=== PATIENT | male | born 1990 | race Hispanic/Latino ===

== ENCOUNTER 2018-07-07 08:21 | Outpatient (CLI) | payer BC ==
[2018-07-07 10:46] LABS: Alanine Aminotransferase 100 units/L (7-56); Albumin 4.9 g/dL (3.9-5); BUN/Creatinine Ratio 11; Blood Urea Nitrogen 9 mg/dL (9-20); Calcium 9.4 mg/dL (8.4-10.2); Chol/HDL Ratio 3.85 %; HDL Cholesterol 49 mg/dL (40-59); Hemolysis Index 4; LDL Cholesterol,Direct 139 mg/dL (50-130)
== END 2018-07-07 08:22 | disposition home or self-care (01) ==
LOC: LAB 08:21
PROVIDERS: ATTEND Internal Medicine
DX: E78.5 Hyperlipidemia, unspecified (principal); E66.09 Other obesity due to excess calories; R73.03 Prediabetes; R74.0 Nonspecific elevation of levels of transaminase and lactic acid dehydrogenase [LDH]
CPT/HCPCS: 36415; 80053; 80061; 83036

== ENCOUNTER 2018-10-05 09:36 | Outpatient (CLI) | payer BC ==
[2018-10-05 11:07] LABS: Alanine Aminotransferase 97 units/L (7-56); Albumin 4.9 g/dL (3.9-5); BUN/Creatinine Ratio 11; Blood Urea Nitrogen 9 mg/dL (9-20); Calcium 9.5 mg/dL (8.4-10.2); Hemolysis Index 4; LDL Cholesterol,Direct 127 mg/dL (50-130)
[2018-10-05 11:21] LABS: Chol/HDL Ratio 3.62 %; HDL Cholesterol 50 mg/dL (40-59)
[2018-10-05 11:47] LABS: Hepatitis B Surface Antigen Non-Reactive (Negative); Hepatitis C Virus Antibody Non-Reactive (NonReactive)
== END 2018-10-05 09:37 | disposition home or self-care (01) ==
LOC: LAB 09:36
PROVIDERS: ATTEND Internal Medicine
DX: E78.5 Hyperlipidemia, unspecified (principal); R74.0 Nonspecific elevation of levels of transaminase and lactic acid dehydrogenase [LDH]; R73.03 Prediabetes
CPT/HCPCS: 36415; 80053; 80061; 80074; 83036

== ENCOUNTER 2019-03-08 09:56 | Outpatient (CLI) | payer BC ==
[2019-03-08 12:56] LABS: Basophils % (Auto) 0.4 % (0.0-1.8); Eosinophils # (Auto) 0.2 K/mm3 (0.0-0.4); Eosinophils % (Auto) 2.8 % (0.0-4.3); Hemoglobin 16.1 gm/dl (11.8-15.2); Lymphocytes # (Auto) 1.9 K/mm3 (1.2-5.4); Lymphocytes % (Auto) 35.1 % (13.4-35.0); Mean Corpuscular HGB Conc 33 % (32-34); Mean Corpuscular Volume 88 fl (84-94); Monocytes # (Auto) 0.4 K/mm3 (0.0-0.8); Monocytes % (Auto) 7.4 % (0.0-7.3); Platelet Count 245 K/mm3 (140-440); Red Blood Count 5.49 M/mm3 (3.65-5.03); Red Cell Distribution Width 13.1 % (13.2-15.2)
[2019-03-08 13:09] LABS: Alanine Aminotransferase 124 units/L (7-56); BUN/Creatinine Ratio 13; Blood Urea Nitrogen 10 mg/dL (9-20); Calcium 9.6 mg/dL (8.4-10.2); Chol/HDL Ratio 4.07 %; HDL Cholesterol 53 mg/dL (40-59); Hemolysis Index 6; LDL Cholesterol,Direct 151 mg/dL (50-130)
[2019-03-11 08:44] LABS: Vitamin D, 25-OH, D2 <4 ng/mL
== END 2019-03-08 09:57 | disposition home or self-care (01) ==
LOC: LAB 09:56
PROVIDERS: ATTEND Internal Medicine
DX: Z00.00 Encounter for general adult medical examination without abnormal findings (principal); Z13.29 Encounter for screening for other suspected endocrine disorder; Z13.21 Encounter for screening for nutritional disorder; R73.03 Prediabetes; E78.5 Hyperlipidemia, unspecified
CPT/HCPCS: 36415; 80053; 80061; 82306; 82607; 83036; 84443; 85025

== ENCOUNTER 2019-03-26 13:46 | Outpatient (CLI) | payer BC ==
--- NOTE | 2019-03-26 17:51 | Ultrasound Report ---
LIMITED RUQ ABDOMINAL ULTRASOUND INDICATION: NONSPECIFIC ELEVATION OF TRANSAMINASE AND LACTIC ACID DEHYDROGENASE. COMPARISON: No relevant prior imaging study available. FINDINGS: Pancreas: Visualized portions show no significant abnormality. Abdominal Aorta: No significant abnormality. IVC: No significant abnormality. Liver: The liver measures 16.7 cm in length. Diffusely increased hepatic echogenicity which typically indicates hepatic steatosis.. Normal hepatopedal blood flow in the main portal vein. Gallbladder: No significant abnormality. Bile ducts: No significant abnormality. Common bile duct measures 4 mm. Right kidney: No significant abnormality visualized.. Free fluid: None. Additional Findings: None. IMPRESSION: 1. Sonographic findings suggesting hepatic steatosis. Signer Name: Kojo Dodson MD Signed: 03/26/2019 5:47 PM Workstation Name: [id number]
== END 2019-03-26 13:47 | disposition home or self-care (01) ==
LOC: US 13:46
PROVIDERS: ATTEND Internal Medicine
DX: K76.0 Fatty (change of) liver, not elsewhere classified (principal); R74.0 Nonspecific elevation of levels of transaminase and lactic acid dehydrogenase [LDH]
CPT/HCPCS: 76705

== ENCOUNTER 2021-01-24 11:29 | Outpatient (CLI) | payer BC ==
[2021-01-24 12:17] LABS: Basophils % (Auto) 0.3 % (0.0-1.8); Eosinophils # (Auto) 0.1 K/mm3 (0.0-0.4); Eosinophils % (Auto) 1.3 % (0.0-4.3); Hematocrit 44.6 % (35.5-45.6); Hemoglobin 14.7 gm/dl (11.8-15.2); Lymphocytes # (Auto) 1.8 K/mm3 (1.2-5.4); Mean Corpuscular HGB Conc 33 % (32-34); Mean Corpuscular Volume 87 fl (84-94); Monocytes # (Auto) 0.4 K/mm3 (0.0-0.8); Monocytes % (Auto) 6.9 % (0.0-7.3); Platelet Count 248 K/mm3 (140-440); Red Cell Distribution Width 13.2 % (13.2-15.2)
[2021-01-24 12:35] LABS: Alanine Aminotransferase 64 units/L (7-56); Albumin 4.9 g/dL (3.9-5); BUN/Creatinine Ratio 15; Blood Urea Nitrogen 12 mg/dL (9-20); Calcium 9.2 mg/dL (8.4-10.2); Chol/HDL Ratio 4.17 %; HDL Cholesterol 47 mg/dL (40-59); Hemolysis Index 4; LDL Cholesterol,Direct 134 mg/dL (50-130)
== END 2021-01-24 11:30 | disposition home or self-care (01) ==
LOC: LAB 11:29
PROVIDERS: ATTEND Internal Medicine
DX: Z00.00 Encounter for general adult medical examination without abnormal findings (principal); E78.5 Hyperlipidemia, unspecified; R53.83 Other fatigue; R73.09 Other abnormal glucose; E55.9 Vitamin D deficiency, unspecified
CPT/HCPCS: 36415; 80053; 80061; 82306; 83036; 84443; 85025

== ENCOUNTER 2021-10-23 08:40 | Emergency (ER) | payer BC ==
[2021-10-23 09:17] VITALS: BP 126/73
--- NOTE | 2021-10-23 10:21 | Emergency Department Report ---
ED General Adult HPI - General Chief complaint: Upper Respiratory Infection Stated complaint: FLU LIKE SYMTOMS Time Seen by Provider: 10/23/21 09:58 Source: patient Mode of arrival: Ambulatory Limitations: No Limitations - History of Present Illness Initial comments: 31-year-old male with no significant past medical history presents to ER with complaints of cough, nasal congestion, body aches. Patient reports his daughter as well as his are experiencing similar symptoms. Patient reports he was COVID-negative when he tested on Friday. Patient reports taking upad-rdr-tnyzrhn medications with no relief. No other symptoms reported. Severity scale (0 -10): 6 - Related Data Previous Rx's Medication Instructions Recorded Last Taken Type Benzonatate [Tessalon Perles] 100 mg PO Q8HR PRN 6 Days #18 cap 10/23/21 Unknown Rx methylPREDNISolone [Medrol 4MG 4 mg PO DAILY #1 10/23/21 Unknown Rx DOSEPAK (21 tabs)] Allergies Allergy/AdvReac Type Severity Reaction Status Date / Time No Known Allergies Allergy Verified 10/23/21 09:18 ED Review of Systems ROS: Stated complaint: FLU LIKE SYMTOMS Other details as noted in HPI Comment: All other systems reviewed and negative Constitutional: malaise ENT: congestion Respiratory: cough. denies: shortness of breath ED Past Medical Hx - Past Medical History Previous Medical History?: No - Medications Home Medications: Home Medications Medication Instructions Recorded Confirmed Last Taken Type Benzonatate [Tessalon Perles] 100 mg PO Q8HR PRN 6 Days #18 cap 10/23/21 Unknown Rx methylPREDNISolone [Medrol 4MG 4 mg PO DAILY #1 10/23/21 Unknown Rx DOSEPAK (21 tabs)] ED Physical Exam - General Limitations: No Limitations General appearance: alert, in no apparent distress - Head Head exam: Present: atraumatic, normocephalic - Eye Eye exam: Present: normal appearance - ENT ENT exam: Present: mucous membranes moist - Neck Neck exam: Present: normal inspection - Respiratory Respiratory exam: Present: normal lung sounds bilaterally. Absent: respiratory distress - Cardiovascular Cardiovascular Exam: Present: regular rate, normal rhythm. Absent: systolic murmur, diastolic murmur, rubs, gallop - GI/Abdominal GI/Abdominal exam: Present: soft, normal bowel sounds - Rectal Rectal exam: Present: deferred - Extremities Exam Extremities exam: Present: normal inspection - Back Exam Back exam: Present: normal inspection - Neurological Exam Neurological exam: Present: alert, oriented X3 - Psychiatric Psychiatric exam: Present: normal affect, normal mood - Skin Skin exam: Present: warm, dry, intact, normal color. Absent: rash ED Course Vital Signs 10/23/21 09:13 Temperature 98.5 F Pulse Rate 115 H Respiratory 16 Rate Blood Pressure 126/73 [Right] O2 Sat by Pulse 98 Oximetry ED Medical Decision Making - Radiology Data [facility] [address] [place] [address] XRay Report Signed Patient: MARIETTA NICOLAS JR MR#: [id number] : 1990 Acct:[id number] Age/Sex: 31 / M ADM Date: 10/23/21 Loc: ED Attending Dr: Ordering Physician: RYLAND GARCES NP Date of Service: 10/23/21 Procedure(s): XR chest 1V ap Accession Number(s): [id number] cc: RYLAND GARCES NP Fluoro Time In Minutes: CHEST 1 VIEW 10/23/2021 9:20 AM INDICATION / CLINICAL INFORMATION: cough. COMPARISON: None available. FINDINGS: SUPPORT DEVICES: None. HEART / MEDIASTINUM: No significant abnormality. LUNGS / PLEURA: No significant pulmonary or pleural abnormality. No pneumothorax. ADDITIONAL FINDINGS: No significant additional findings. IMPRESSION: 1. No acute findings. Signer Name: Tyler Cooper MD Signed: 10/23/2021 10:24 AM Workstation Name: [id number] Transcribed By: Dictated By: TYLER COOPER MD Electronically Authenticated By: TYLER COOPER MD Signed Date/Time: 10/23/21 1024 DD/ 1023 TD/TT: - Medical Decision Making 31-year-old male with no significant past medical history presents to ER with complaints of cough, nasal congestion, body aches. Patient reports his daughter as well as his are experiencing similar symptoms. Patient reports he was COVID-negative when he tested on Friday. Patient reports taking jmct-min-rpvalev medications with no relief. No other symptoms reported. No acute clinical finding on phyiscal exam. Patient lungs are CTA. Xray of chest with no acute process noted. patient sent with oral steriod dose jeremy and tesslon pearls for cough. Patient informed to take medication as directed and and he has common cold and symptoms should soon resolved and if symptoms get worst to report back to er. patient agrees with plan of care and verbalized understanding. Vital Signs 10/23/21 09:13 Temperature 98.5 F Pulse Rate 115 H Respiratory 16 Rate Blood Pressure 126/73 [Right] O2 Sat by Pulse 98 Oximetry Critical care attestation.: If time is entered above; I have spent that time in minutes in the direct care of this critically ill patient, excluding procedure time. ED Disposition Clinical Impression: URI (upper respiratory infection) Qualifiers: URI type: unspecified URI Qualified Code(s): J06.9 - Acute upper respiratory infection, unspecified Disposition: 01 HOME / SELF CARE / HOMELESS Is pt being admited?: No Condition: Stable Instructions: Viral Respiratory Infection, Dlrn-Ro-Vrtw, Cough, Adult Prescriptions: methylPREDNISolone [Medrol 4MG DOSEPAK (21 tabs)] 4 mg PO DAILY #1 Benzonatate [Tessalon Perles] 100 mg PO Q8HR PRN 6 Days #18 cap PRN Reason: Cough Referrals: FIORDALIZA MASTERSON MD [Primary Care Provider] - 3-5 Days Forms: Work/School Release Form(ED)
--- NOTE | 2021-10-23 10:28 | XRay Report ---
CHEST 1 VIEW 10/23/2021 9:20 AM INDICATION / CLINICAL INFORMATION: cough. COMPARISON: None available. FINDINGS: SUPPORT DEVICES: None. HEART / MEDIASTINUM: No significant abnormality. LUNGS / PLEURA: No significant pulmonary or pleural abnormality. No pneumothorax. ADDITIONAL FINDINGS: No significant additional findings. IMPRESSION: 1. No acute findings. Signer Name: Syd Cooper MD Signed: 10/23/2021 10:24 AM Workstation Name: [address]
== END 2021-10-23 13:20 | disposition home or self-care (01) ==
LOC: ED 08:40
DX: J06.9 Acute upper respiratory infection, unspecified (principal); Z79.899 Other long term (current) drug therapy
CPT/HCPCS: 71045; 99283